=== PATIENT | female | born 1965 | race Caucasian/White ===

== ENCOUNTER 2016-11-02 14:40 | Emergency (ER) | payer OTHER, MEDICAID ==
[~2016-11-02] VITALS: Ht 167.6 cm; Wt 60.0 kg
--- NOTE | 2016-11-02 15:31 | PD ---
HPI . MS flare Chief Complaint: General Weakness Time Seen by Provider: 15:31 Travel History International Travel<30 days: No Contact w/Intl Traveler<30days: No Traveled to known affect area: No History of Present Illness HPI 51-year-old female here with complaints of MS flare. Patient was diagnosed with multiple sclerosis in 2003. She tells me that she has generalized weakness. She feels MS fog. She denies fever or chills. PFSH Past Medical History Neurologic: Yes Thyroid Disease: Yes Social History Tobacco Use: No Allergies-Medications (Allergen,Severity, Reaction): Coded Allergies: Penicillins (Verified Allergy, Severe, 11/02/16) Reported Meds & Prescriptions Reported Meds & Active Scripts Active Prednisone 50 Mg Tab 50 Mg PO DAILY Reported D3 Maximum Strength (Cholecalciferol) 5,000 Unit Cap 10,000 Units PO DAILY Rizatriptan (Rizatriptan Benzoate) 5 Mg Tab Sumatriptan (Sumatriptan Succinate) 100 Mg Tab 100 Mg PO ONCE PRN If a satisfactory response has not been obtained at 2 hours, a second dose may be administered Naltrexone (Naltrexone HCl) 50 Mg Tab 4.5 Mg PO HS Flexeril (Cyclobenzaprine HCl) 5 Mg Tab 5 Mg PO HS Estradiol 2 Mg Tab 2 Mg PO DAILY Clonazepam 0.5 Mg Tab 0.5 Mg PO BID Synthroid (Levothyroxine Sodium) 25 Mcg Tab 25 Mcg PO DAILY Amitiza (Lubiprostone) 8 Mcg Cap 24 Mcg PO DAILY Review of Systems General / Constitutional: No: Fever Eyes: No: Visual changes HENT: No: Headaches Cardiovascular: No: Chest Pain or Discomfort Respiratory: No: Shortness of Breath Gastrointestinal: No: Abdominal Pain Genitourinary: No: Urgency, Frequency, Dysuria Musculoskeletal: No: Pain Skin: No Rash Neurologic: Positive: Weakness Psychiatric: No: Depression Endocrine: No: Polydipsia Hematologic/Lymphatic: No: Easy Bruising Physical Exam Narrative GENERAL: AAO x 3, no acute distress, Well-nourished, well-developed patient. SKIN: Warm and dry. No visible rashes or bruising. HEAD: Normocephalic and atraumatic. EYES: No scleral icterus. No injection or drainage. EOM intact, PERRLA ENT: No nasal drainage noted. Mucous membranes pink. Airway patent. NECK: Supple, trachea midline. No JVD. CARDIOVASCULAR: Regular rate and rhythm without murmurs, gallops, or rubs. RESPIRATORY: Breath sounds equal bilaterally. No accessory muscle use. No rhonchi or rales. GASTROINTESTINAL: Abdomen soft, non-tender, nondistended. EXTREMITIES: No cyanosis or edema. BACK: No obvious deformity. No CVA tenderness. 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 Grossly intact PSYCH: AAO x 3, normal affect. Data Data Last Documented VS Vital Signs Date Time Temp Pulse Resp B/P (MAP) Pulse Ox O2 Delivery O2 Flow Rate FiO2 11/02/16 16:14 18 99 Room Air 11/02/16 16:13 98.3 83 122/70 (87) Orders Orders Urinalysis - C+S If Indicated (11/02/16 15:47) Dexamethasone Inj (Decadron Inj) (11/02/16 16:00) Labs Laboratory Tests Test 11/02/16 00:00 Urine Color LIGHT-YELLOW Urine Turbidity CLEAR Urine pH 8.0 Urine Specific [place] 1.004 Urine Protein NEG mg/dL Urine Glucose (UA) NEG mg/dL Urine Ketones NEG mg/dL Urine Occult Blood NEG Urine Nitrite NEG Urine Bilirubin NEG Urine Urobilinogen LESS THAN 2.0 MG/DL Urine Leukocyte Esterase NEG Urine Squamous Epithelial Cells 2 /hpf Urine Bacteria RARE /hpf Microscopic Urinalysis Comment CULT NOT INDICATED MDM Medical Decision Making Medical Screen Exam Complete: Yes Emergency Medical Condition: Yes Medical Record Reviewed: Yes Differential Diagnosis MS flare, UTI, less likely CVA Narrative Course 51-year-old female here with complaints of MS flare. Examination there are no gross abnormalities. Neuro exam is fairly unremarkable. I will check a UA to rule out UTI. I do not suspect it will be positive. Patient is afebrile. No tachycardia. Laboratory Tests Test 11/02/16 00:00 Urine Color LIGHT-YELLOW Urine Turbidity CLEAR Urine pH 8.0 Urine Specific [place] 1.004 Urine Protein NEG mg/dL Urine Glucose (UA) NEG mg/dL Urine Ketones NEG mg/dL Urine Occult Blood NEG Urine Nitrite NEG Urine Bilirubin NEG Urine Urobilinogen LESS THAN 2.0 MG/DL Urine Leukocyte Esterase NEG Urine Squamous Epithelial Cells 2 /hpf Urine Bacteria RARE /hpf Microscopic Urinalysis Comment CULT NOT INDICATED I discussed the case with my attending physician Dr. Pacheco and he is in agreement. Decadron in ED. Steroid burst at home. Recommend f/u with PCP and neurology. Diagnosis Primary Impression: Generalized weakness Referrals: Neurologist Patient Instructions: General Instructions Additional Instructions: Please return to emergency department if your symptoms return or worsen. Follow up with your primary care provider. Take medications as prescribed. Med/Other Pt SpecificInfo: Prescription(s) given Scripts Prednisone (Prednisone) 50 Mg Tab 50 MG PO DAILY, #5 TAB 0 Refills Prov: Lenard Pacheco MD 11/02/16 Disposition: 01 DISCHARGE HOME Condition: Stable Hanny Corral Nov 02, 2016 15:31
[2016-11-02] MEDS ORDERED: ESTR2TAB PO (15:40)
[2016-11-02] MEDS ORDERED: AMIT8CAP6 PO (15:40)
[2016-11-02] MEDS ORDERED: SYNT25TA PO (15:40)
[2016-11-02] MEDS ORDERED: CYCL5TAB PO (15:40)
[2016-11-02] MEDS ORDERED: RIZA5TAB (15:40)
[2016-11-02] MEDS ORDERED: CLON0.5T PO (15:40)
[2016-11-02] MEDS ORDERED: SUMA100T2 PO (15:40)
[2016-11-02] MEDS ORDERED: NALT50TA3 PO (15:40)
[2016-11-02] MEDS ORDERED: CHOL1CAP14 PO (15:40)
[2016-11-02] MEDS ORDERED: DEXAMETHASONE SOD PHOS 20 MG/5 ML VIAL IM ONE (16:00)
[2016-11-02 16:13] VITALS: BP 122/70; PULSE 83; RESP 18; TEMP 98.3; O2SAT 96
[2016-11-02 16:38] LABS: BACTERIA, URINE RARE /hpf; BLOOD, URINE NEG (NEG); COMMENT (UR) CULT NOT INDICATED; CULTURE IF INDICATED CULT NOT INDICATED; GLUCOSE,URINE NEG (NEG); KETONE, URINE NEG (NEG); NITRITE,URINE NEG (NEG); SQUAMOUS EPITHELIAL CELL URINE 2 /hpf (0-5); URINE COLOR LIGHT-YELLOW (YELLW/STRAW)
[2016-11-02] MEDS ORDERED: PRED50 PO (16:53)
== END 2016-11-02 17:47 | disposition home or self-care (01) ==
LOC: NEPD 14:40
DX: G35 Multiple sclerosis (principal); R53.1 Weakness
CPT/HCPCS: 81001; 96372; 99284; J1100